=== PATIENT | male | born 1940 | race Caucasian/White ===

== ENCOUNTER → 2017-01-01 | Day surgery (SDC) | payer MEDICARE ==
[~2017-01-01] VITALS: Ht 179.1 cm; Wt 128.2 kg
[2017-01-01] VITALS (9 sets, daily range): BP systolic 134–169; BP diastolic 59–73; PULSE 72–84; RESP 14–17; O2SAT 91–97
[~2017-01-01] MED LIST: ASPI-973 PO; BECL8.7A6 INHALATION; CHOL200047 PO; Dexamethasone 4 mg/mL Inj IVPUSH PRN; Dexamethasone 4 mg/mL Inj ONE; EPHEDrine Sulfate 50 mg/mL Inj IVPUSH PRN; HYDROmorphone 1 mg/mL Inj IVPUSH PRN; LISI10TA PO; LUTE20CA8 PO; Labetalol 5 mg/mL 4 mL Inj IV PRN; Lactated Ringer's 1,000 ML IV ONE; Lactated Ringer's 1,000 ML IV SCH; Lactated Ringer's 500 ML IV PRN; Lidocaine 1%-Epi 1:100,000 20 mL Inj INFILTRATE ONE; METF1000 PO; MULT-1018 PO; MetoCLOpramide 5 mg/mL 2 mL Inj IVPUSH PRN; MetoCLOpramide 5 mg/mL 2 mL Inj ONE; NAPR220C11 PO; Ondansetron 2 mg/mL 2 mL Inj IVPUSH PRN; Ondansetron 2 mg/mL 2 mL Inj ONE; PRAV20TA2 PO; Phenylephrine 10,000 mCg/mL Inj IVPUSH PRN; Propofol 10,000 mCg/mL 20 mL Inj ONE; RANI150C4 PO; fentaNYL-PF 50 mCg/mL 2 mL Inj IVPUSH PRN; fentaNYL-PF 50 mCg/mL 2 mL Inj ONE
--- NOTE | 2017-01-01 07:17 | PCM.HPANE ---
Patient Data Surgeon Admitting Provider: Attending Provider:Sean Perez MD Primary Care Physician:Adin Neal DO Other Provider:Delia Fagan Anesthesia Reason for Visit Hyperparathyroidism HYPERPARATHYROIDISM Ht/WT & BMI Height (Feet): 5 Height (Inches): 10.5 Weight (Kilograms): 128.2 Body Mass Index 40.00 Allergies Coded Allergies: No Known Allergies (Verified Allergy, Severe, 10/07/15) Past Anesthesia History Anesthesia History: Denies:: Abnormal Airway, Anesthesia Reactions (prior knee surgery 7-8 yrs ago "loopy" after surgery), Difficult Intubation, Fam Anesthesia Reaction, Malignant Hyperthermia Diabetes History Hx Diabetes?: No Type of Diabetes: Type II Glycemic Control: Oral Medication MRSA MRSA: No Medications Blood Thinner: Aspirin Hypertension Medication: Yes Home Meds Incl Beta Haider: No Reported Medications Cholecalciferol (Vitamin D3) (Vitamin D3)2,000 Unit Capsule2,000 Unit PO DAILY 12/28/16 Ranitidine 150 Mg Uhzopui350 Mg PO BID Ref 0 12/28/16 Beclomethasone Dipropionate (Qvar)8.7 Gm Aer.w.adap1 Puff INHALATION BID #8.7 GM 12/28/16 Pravastatin 20 Mg Jvexzb39 Mg PO DAILY Ref 0 12/28/16 Multivitamin (Multi Vitamin Daily)1 Each Tablet1 Each PO DAILY 30 Days Ref 0 12/28/16 Metformin (Glucophage)1,000 Mg Tablet1,000 Mg PO BID Ref 0 12/28/16 Lutein 20 Mg Hypnuar39 Mg PO DAILY 12/28/16 Lisinopril 10 Mg Comqzk00 Mg PO DAILY 30 Days Ref 0 12/28/16 Aspirin 81 Mg Mxogig36 Mg PO DAILY Ref 0 12/28/16 Discontinued Reported Medications Pravastatin 20 Mg Sfndct22 Mg PO DAILY Ref 0 11/03/16 Aspirin 81 Mg Cwehrh01 Mg PO DAILY Ref 0 11/03/16 Zinc Gluconate (Zinc)30 Mg Hiukab55 Mg PO DAILY 11/03/16 [vitamin d2] No Conflict Check50,000 Weekly 11/03/16 Multivitamin (Multi Vitamin Daily)1 Each Tablet1 Each PO DAILY 30 Days Ref 0 11/03/16 Lutein Extract/Zeaxanthin Ext (Lutein 15 mg Softgel)1 Each Capsule1 Each PO DAILY 11/03/16 Lisinopril 5 Mg Tablet5 Mg PO DAILY #30 TABLET Ref 0 11/03/16 Zolpidem (Ambien)10 Mg Uwgjmu01 Mg PO HS PRN For Insomnia Ref 0 11/03/16 History History of ENT Problems?: Yes HEENT History: Positive for:: Hearing Problem Sinus Problem (occasional sinus issues) Denies:: Abnormal Airway Cataracts (forming, not surgically treated) Difficult Intubation Dysphagia Glaucoma TMJ Denture Type: Partial- Upper Hx of Heart Problems?: Yes Cardiovascular History: Positive for:: Abdominal Aortic Aneurism (being monitored, US recently no change) Hypertension Denies:: AICD Atrial Fibrillation Cardiac Surgery Chest Pain Congestive Heart Failure Heart Murmur Irregular Heartbeat Pacemaker Peripheral Vascular Rheumatic Fever Thrombophlebitis Valvular Heart Disease Hx of Respiratory Problem?: Yes Respiratory History: Positive for:: Cough (chronic) Oxygen Administration Pneumonia (past hx of) Use of C-PAP Machine Use of Inhalers / NEBS Denies:: Asthma COPD Emphysema Tuberculosis Hx Neurologic Problems?: No Neurological History: Denies:: CVA Dizziness Headaches Multiple Sclerosis Parkinson's Disease Seizures Hx of GI Problems?: Yes Gastrointestinal History: Positive for:: Gastroesphageal Reflux Heartburn Liver Disease (fatty liver disease) Denies:: Cirrhosis Gall Bladder Disease Gastrointestinal Bleeding Hepatitis Hiatal Hernia Rectal Bleeding Hx of Problems?: No Genitourinary History: Denies:: Kidney Stones Urinary Tract Infection Male Hx: Denies:: Prostate Problems Scrotal Mass Testicular Surgery Skin History: Denies:: History Skin Disorders? Pressure Ulcers Hx Musculoskeletal Problems?: Yes Musculoskeletal History: Positive for:: Degenerative Joint Joint Replacement (right total knee ) Musculoskeletal Trauma (awaiting left total knee replacement - no date scheduled) Osteoarthritis Denies:: Back Injury Fibromyalgia Hx of Psycho/Social Problems?: No Psycho Social History: Denies:: Anxiety Hx Depression Hx Surgeries?: Yes (RT TKA,DENTAL EXTRACTIONS,APPY,LYMPH NODE BX, parathyroid) Hx Any Other Health Problems?: Yes Other History: Positive for:: Thyroid Disease (parathyroid disease current admission problem) Denies:: Cancer Endocrine Disease Hospitalization History Blood Transfusions: Positive for:: Accept Blood Products? Denies:: Blood Transfusions Hx Diabetes: No Hx Alcohol Use: NoHx Substance Use: No Smoking Status: Former Smoker Have You Smoked inLast 12 mo: No Stop/Bang Treated for Sleep Apnea?: Yes Do You Have a CPAP Machine?: Yes S-Snoring: Do You Snore Loudly: No T-Tired: feel tired, fatigued: No O-Obsered: Observed not breath: No P-Blood Pressure: treated: Yes B- Body Mass Index > 35 kg/m2: Yes A- Age over 50: Yes N- Neck Large Circumference: Yes G- Gender Male: Yes ISAAC Total Score: 5 ISAAC Risk Assessment: High Risk, =/>3 Yes Risk Assessment Category Category 1A: Patient has history of documented sleep apnea, and HAS NOT received any narcotic, sedative or anesthesia administration during this stay. Category 1B: Patient has history of documented sleep apnea, and HAS received any narcotic , sedative or anesthesia administration during this stay Category 2: Patient has SUSPECTED Obstructive Sleep Apnea, and HAS received any narcotic , sedative or anesthesia administration during this stay. Category 3: Patient has SUSPECTED Obstructive Sleep Apnea and HAS NOT received narcotic, sedative or anesthesia administration during this stay. Category 4: Outpatient in Procedural Areas with known sleep apnea or who screen positive for High Risk via the STOP/BANG questionnaire. Exam Exam Vital Signs Vital Signs Date Time Temp Pulse Resp B/P Pulse Ox O2 Delivery O2 Flow Rate FiO2 01/01/17 06:32 72 14 134/69 93 Room Air General Appearance: Oriented X3 HEENT/AIRWAY: MP 2 Lungs: Normal Air Movement Heart: Regular Rate/Rhythm Meds/Labs/Diagnostics Admission Meds Current Medications Lactated Ringer's (Lr) 1,000 ml @ ud STK-MED ONCE IV Last administered on 01/01t 06:52; Start 01/01/17 at 06:52; Stop 01/01/17 at 06:53; Status DC Plan Impression Patient chart reviewed, patient interviewed and anesthestic plan with risks, benefits, and alternatives discussed, and informed consent obtained. NPO Status: 12/31@2200 ASA Physical Status: ASA3 Severe Disease Anesthetic Plan: GA Bene/Risks/Altern/Consents: Yes HP Complete Prior to Induction: Yes Gómez Camilo MD Jan 01, 2017 07:17
--- NOTE | 2017-01-01 08:59 | OP ---
[address] [address] OPERATIVE REPORT PATIENT: KRISTY DIAMOND : 1940 MR#: [id number] ADMIT: 01/01/2017 JOB ID: [id number] DATE OF SURGERY: PREOPERATIVE DIAGNOSIS(ES): Primary hyperparathyroidism. POSTOPERATIVE DIAGNOSIS(ES): Primary hyperparathyroidism. PROCEDURE: Excision of left superior pole parathyroid adenoma. SURGEON: Sean Perez MD HISTORY/INDICATIONS: A 75-year-old gentleman with primary hyperparathyroidism. Based on scan and ultrasound a year ago, an inferior parathyroid adenoma was removed, identified, with an initial significant drop in intraoperative parathyroid hormone. Postoperatively, his parathyroid hormone level and calcium levels came back up. A 4-dimensional CT identified a superior pole adenoma. PROCEDURE AND FINDINGS: The patient was taken to the operative room and placed in supine position on the operating table. General endotracheal anesthesia induced. The neck is extended, prepped and draped in a sterile fashion. The previous surgical scar is injected with 2% lidocaine 1:100,000 epinephrine. With a 15 blade, the old incision was opened. The flap subplatysmally is elevated superiorly and inferiorly. The strap muscles were in the midline. There is a moderate amount of scarring from previous surgery. The thyroid isthmus and left lobe are identified and the strap muscles were dissected off of them. Careful dissection around the lateral border identifies a nearly 2 cm clinical parathyroid adenoma mid to superior pole. With careful combination of blunt and sharp dissection using bipolar cauterization to deal with vessels, the mass was removed and submitted to pathology. Intraoperative parathyroid hormone levels were drawn. The wound was irrigated. Hemostasis was obtained. The strap muscles were reapproximated midline with interrupted buried 4-0 chromic. The platysma and subcutaneous tissues with the same. Skin with Dermabond. Light pressure dressing was applied. The patient is awakened and extubated in the operative room, returned to the recovery room in good condition. PLAN: Routine postop care. Followup as scheduled.
--- NOTE | 2017-01-01 09:15 | PCM.ANEP1 ---
Post Anesthesia Phase 1 PACU Phase 1 Assessment Vital Signs Vital Signs Date Time Temp Pulse Resp B/P Pulse Ox O2 Delivery O2 Flow Rate FiO2 01/01/17 09:00 77 16 138/61 92 Nasal Cannula 3 01/01/17 08:55 78 15 149/63 94 Nasal Cannula 2 01/01/17 08:50 84 15 151/67 96 Simple Mask 10 01/01/17 08:45 36.4 80 17 169/69 97 Simple Mask 10 01/01/17 06:32 72 14 134/69 93 Room Air Anesthetic Administered: GA Level of Alertness: Awake, talking Pain: No Nausea or Vomiting: No Oxygen Delivery: Room Air Lungs: Normal Air Movement Gómez Camilo MD Jan 01, 2017 09:14
--- NOTE | 2017-01-01 09:15 | PCM.ANEP2 ---
Post Anesthesia Evaluation ASA/CMS Post Anesthesia VS in Patient's Normal Range?: Yes Resp Stable; Airway Patent?: Yes CV Function & Hydration Stable: Yes Mental Status Recovered?: Yes Pain control Satisfactory?: Yes N/V Control Satisfactory?: Yes Gómez Camilo MD Jan 01, 2017 09:15
--- NOTE | 2017-01-03 11:25 | PATH ---
SURGICAL PATHOLOGY Attending Physician:Sean Perez M.D. CASE STATUS: Signed Out PATIENT NAME: KRISTY DIAMOND PID: [id number] : 1940 DATE COLLECTED:01/01/2017 21:36 SPECIMEN: Parathyroid Gland CLINICAL HISTORY: HYPERPARATHYROIDISM 1). LEFT SUPERIOR PARATHYROID FINAL DIAGNOSIS: 1.LEFT SUPERIOR PARATHYROID: HYPERCELLULAR PARATHYROID GLAND, CONSISTENT WITH PARATHYROID ADENOMA, SEE COMMENT. ICD10 code D35.1 NOTE: The specimen is a 1.1 gram parathyroid gland with diffuse hypercellularity, essentially no fat, and a small amount of compressed normal parathyroid tissue at the perimeter. The differential diagnosis is parathyroid adenoma versus parathyroid hyperplasia. The prior removal of the left inferior parathyroid gland (10/12/2015) is noted. The microscopic findings in the current biopsy specimen are consistent with a parathyroid adenoma. Clinical correlation is recommended. GROSS DESCRIPTION: The specimen is received in formalin, labeled with the patient's name, sublabeled as left superior parathyroid and consists of a moya-yellow smooth shiny rubbery parathyroid gland (1.1 g, 1.5 x 1.3 x 0.6 cm). The cut surface is moya-yellow and homogenous. No nodules or masses or lesions are identified. Ink code: black-exterior. Section code: (A-B) parathyroid glands, serially sectioned. Specimen entirely submitted. 01/02/17 JM MICRO DESCRIPTION: See diagnosis. ICD-9 CODES: CPT CODES: 1: 76941 Electronically Signed Out Liliya Phillip MD [facility] Pathology [facility] [address], [place] [address] Technical component performed at [facility], [facility] [address], [place], [address]
== END | disposition home or self-care (01) ==
LOC: SAS 05:54
PROVIDERS: ATTEND Otolaryngology Facial Plastic Surgery
DX: D35.1 Benign neoplasm of parathyroid gland (principal); I10 Essential (primary) hypertension; E11.9 Type 2 diabetes mellitus without complications; Z79.84 Long term (current) use of oral hypoglycemic drugs; I71.4 Abdominal aortic aneurysm, without rupture; Z79.82 Long term (current) use of aspirin; Z96.651 Presence of right artificial knee joint
CPT/HCPCS: 60500; 83970; 88305; J1100; J2405; J2765; J3010; J7120

== ENCOUNTER 2017-05-04 12:49 | Day surgery (SDC) | payer MEDICARE ==
[~2017-05-04] VITALS: Ht 177.8 cm; Wt 130.0 kg
[~2017-05-04 12:49] MED LIST changes: +0.9% Sodium Chloride 1,000 ML IV PRN; -Dexamethasone 4 mg/mL Inj IVPUSH PRN; -Dexamethasone 4 mg/mL Inj ONE; -EPHEDrine Sulfate 50 mg/mL Inj IVPUSH PRN; -HYDROmorphone 1 mg/mL Inj IVPUSH PRN; -Labetalol 5 mg/mL 4 mL Inj IV PRN; -Lactated Ringer's 1,000 ML IV ONE; -Lactated Ringer's 1,000 ML IV SCH; -Lactated Ringer's 500 ML IV PRN; -Lidocaine 1%-Epi 1:100,000 20 mL Inj INFILTRATE ONE; -MetoCLOpramide 5 mg/mL 2 mL Inj IVPUSH PRN; -MetoCLOpramide 5 mg/mL 2 mL Inj ONE; -NAPR220C11 PO; +OMEP20CA11 PO; -Ondansetron 2 mg/mL 2 mL Inj IVPUSH PRN; -Ondansetron 2 mg/mL 2 mL Inj ONE; -Phenylephrine 10,000 mCg/mL Inj IVPUSH PRN; -Propofol 10,000 mCg/mL 20 mL Inj ONE; +Sodium Chloride LOK Flush 10 mL Syringe IV PRN; -fentaNYL-PF 50 mCg/mL 2 mL Inj ONE
[2017-05-04 13:39] VITALS: BP 151/78; PULSE 62; RESP 16; O2SAT 95
[2017-05-04] MEDS ORDERED: NAPR220C11 PO (13:39)
[2017-05-04 14:36] VITALS: BP 132/69; PULSE 62; O2SAT 93
[2017-05-04 14:51] VITALS: BP 115/71; PULSE 57; O2SAT 95
--- NOTE | 2017-05-04 14:55 | ENDO ---
[address] [address] ENDOSCOPY PROCEDURE PATIENT: KRISTY DIAMOND : 1940 MR#: [id number] ADMIT: 05/04/2017 JOB ID: [id number] DATE: 05/04/2017 TYPE OF OPERATION: 1. Esophagogastroduodenoscopy with biopsy. 2. Colonoscopy with biopsy. PREOPERATIVE DIAGNOSIS(ES): Gastroesophageal reflux disease and diarrhea. POSTOPERATIVE DIAGNOSIS(ES): 1. Mild nonerosive gastritis. 2. Concentric rings were possibly seen throughout the entire esophagus. 3. A 3 mm gastric ulcer at the antrum clean based, nonbleeding, status post biopsy. 4. Diverticulosis in the sigmoid, transverse, descending and ascending colon. ANESTHESIA: 1. Fentanyl 100 mcg. 2. Versed 5 mg IV administered. COMPLICATIONS: None. BLOOD LOSS: Minimal. DESCRIPTION OF PROCEDURE: After risks and benefits were explained to the patient, informed consent was obtained. After anesthesia administered, an upper endoscope was then inserted into the mouth intubating to the esophagus, stomach, second portion of duodenum. Mucosa carefully examined. After the procedure was done, the scope withdrawn and procedure terminated. Colonoscope was then inserted from the rectum to the terminal ileum and mucosa carefully examined. Prep of the patient was excellent. After the procedure was done, the scope withdrawn and procedure terminated. FINDINGS: Upon inspection of the esophagus, it was possibly concentric rings seen throughout the entire esophagus. Z-line located 40 cm from incisors. Upon entering the stomach, there was mild nonerosive gastritis that was seen. There was a 3 mm ulcer that was seen in the antrum of the stomach. Clean based, nonbleeding. Retroflexion was normal. Duodenal bulb, first and second portion normal. Biopsies taken at the duodenum, antral ulcer, body of the stomach, mid and distal esophagus. Upon inspection of the anus, no masses, hemorrhoids, ulcers, or fissures that were seen. Throughout the entire examination, there was diverticulosis mild that was seen in the ascending, transverse, descending and sigmoid colon. Biopsies taken at the terminal ileum and random colon. No polyps or masses were seen. Retroflexion was normal. IMPRESSION: 1. Burks diverticulosis of the sigmoid, descending, transverse and ascending colon. 2. Mild nonerosive gastritis. 3. Possible concentric rings seen throughout the entire esophagus status post biopsy. 4. A 3 mm antral ulcer clean based, nonbleeding, status post biopsy. RECOMMENDATIONS: 1. Carafate 1 g by mouth four times a day. 2. Omeprazole 40 mg by mouth twice a day. 3. Await pathology results. 4. Repeat EGD in approximately two months to document healing. 5. Avoid NSAIDs. 6. Followup in GI clinic as needed.
--- NOTE | 2017-05-08 11:26 | PATH ---
SURGICAL PATHOLOGY Attending Physician:Efrain Sweet MD CASE STATUS: Signed Out PATIENT NAME: KRISTY DIAMOND PID: [id number] : 1940 DATE COLLECTED:05/04/2017 23:41 SPECIMEN: 1: Duodenum, Biopsy 2: Stomach, Antrum, Biopsy 3: Gastric, Biopsy 4: Esophagus, Biopsy 5: Esophagus, Biopsy 6: Ileum, Biopsy 7: Colon, Biopsy CLINICAL HISTORY: 1). DUODENAL BIOPSY 2). GASTRIC ANTRUM ULCER BIOPSY, RULE OUT H.PYLORI 3). GASTRIC BODY BIOPSY 4). DISTAL ESOPHAGUS BIOPSY 5). MID ESOPHAGUS BIOPSY 6). TERMINAL ILEUM 7). RANDOM COLON BIOPSY FINAL DIAGNOSIS: 1.DUODENAL BIOPSY: CHANGES CONSISTENT WITH CHRONIC DUODENITIS WITH FOCAL AREAS OF FOVEOLAR METAPLASIA. Negative for evidence of celiac disease. Negative for dysplasia and malignancy. 2.GASTRIC ANTRUM ULCER BIOPSY: MODERATE TO SEVERE DIFFUSE CHRONIC GASTRITIS, FOCALLY ACTIVE, INVOLVING ANTRAL MUCOSA WITH FOCAL ULCERATION. Immunohistochemistry for Helicobacter pending, to be reported by addendum. Negative for intestinal metaplasia. Negative for dysplasia and malignancy. 3.GASTRIC BODY BIOPSY: MODERATE CHRONIC GASTRITIS, FOCALLY ACTIVE, INVOLVING FUNDIC MUCOSA. Immunohistochemistry for Helicobacter pending, to be reported by addendum. Negative for intestinal metaplasia. Negative for dysplasia and malignancy. 4.DISTAL ESOPHAGUS BIOPSY: SQUAMOUS MUCOSA AND GASTRIC CARDIA-TYPE MUCOSA NEGATIVE FOR SPECIALIZED METAPLASIA OF GARCÍA' S-TYPE ESOPHAGUS. Negative for dysplasia and malignancy. Negative for squamous intraepithelial eosinophils. 5.MID ESOPHAGUS BIOPSY: SQUAMOUS EPITHELIUM, NEGATIVE FOR ATYPIA. Negative for intraepithelial eosinophils. 6.TERMINAL ILEUM BIOPSY: FRAGMENTS OF NORMAL-APPEARING SMALL BOWEL CONSISTENT WITH TERMINAL ILEUM. Negative for granulomas. Negative for significant inflammation, dysplasia and malignancy. 7.RANDOM COLON BIOPSIES: MULTIPLE FRAGMENTS OF NORMAL-APPEARING COLON MUCOSA. Negative for significant architectural distortion. Negative for significant inflammation, dysplasia and malignancy. ICD10 K29.70 GROSS DESCRIPTION: The specimen is received in seven formalin filled containers labeled with the patient's name. 1). The specimen is labeled "duodenal" and consists of 2 portions of tissue which aggregate to 0.3 x 0.3 x 0.2 CM. The specimen is entirely submitted in cassettes 1A. 2). The specimen is labeled "gastric antrum ulcer" and consists of a 0.3 x 0.3 x 0.2 CM portion of tissue which is entirely submitted in cassettes 2A. 3). The specimen is labeled "gastric body" and consists of a 0.3 x 0.3 x 0.3 CM portion of tissue which is entirely submitted in cassette 3A. 4). The specimen is labeled "distal esophagus" and consists of a 0.2 x 0.2 x 0.2 CM portion of tissue which is entirely submitted in cassette 4A. 5). The specimen is labeled "mid esophagus" and consists of 2 portions of tissue which aggregate to 0.3 x 0.3 x 0.2 CM. The specimen is entirely submitted in cassette 5A. 6). The specimen is labeled "terminal ileum" and consists of a 0.3 x 0.3 x 0.3 CM portion of tissue which is entirely submitted in cassette 6A. 7). The specimen is labeled "random colon" and consists of 4 portions of tissue which aggregate to 0.4 x 0.4 x 0.2 CM. The specimen is entirely submitted in cassette 7A. 05/05/2017DC MICRO DESCRIPTION: See diagnosis. ICD-9 CODES: CPT CODES: 1: 53131 2: 77623, 81096 3: 13063, 62587 4: 43888 5: 49905 6: 87595 7: 67806 Electronically Signed Out Allen Banks MD [facility] Pathology [facility] [address], [place] [address] Technical component performed at [facility], [address], [place], [address]
== END 2017-05-04 23:59 | disposition home or self-care (01) ==
LOC: END 12:49
PROVIDERS: ATTEND Internal Medicine Gastroenterology
DX: K57.30 Diverticulosis of large intestine without perforation or abscess without bleeding (principal); K29.80 Duodenitis without bleeding; K29.50 Unspecified chronic gastritis without bleeding; R19.7 Diarrhea, unspecified; K21.9 Gastro-esophageal reflux disease without esophagitis; I10 Essential (primary) hypertension; E11.9 Type 2 diabetes mellitus without complications; E78.5 Hyperlipidemia, unspecified; G47.33 Obstructive sleep apnea (adult) (pediatric); M19.90 Unspecified osteoarthritis, unspecified site; I71.4 Abdominal aortic aneurysm, without rupture; E66.01 Morbid (severe) obesity due to excess calories; E21.3 Hyperparathyroidism, unspecified; Z79.82 Long term (current) use of aspirin; Z79.84 Long term (current) use of oral hypoglycemic drugs; Z68.41 Body mass index [BMI] 40.0-44.9, adult
CPT/HCPCS: 43239; 45380; 99153; G0500; J2250; J3010; J7030